=== PATIENT | male | born 1980 | race Caucasian/White ===

== ENCOUNTER 2016-08-06 16:31 | Inpatient (IN) | payer MEDICARE, OTHER ==
--- NOTE | ~2016-08-06 | PN ---
Unit #: [id number] #: [id number] Patient: FLORIAN TOLENTINO [id number] [facility] [address] [place] [address] [id number] I MR#: [id number] NAME: FLORIAN TOLENTINO ROOM: P182 Age: 35 Sex: M Admission Date: 08/06/2016 : 1980 Attending Physician: Stefanie Bray M.D. Admitting Physician: Stefanie Bray M.D. Primary Care Physician: Primary Care Physician Orin EVANS PROGRESS NOTES DATE OF SERVICE: 08/09/2016 SUBJECTIVE Mr. Tolentino is a 35-year-old white male who was seen today and chart was reviewed, and case was discussed with the staff. He has been anxious, withdrawn, disorganized subsequently exhibiting bizarre behavior and persistent paranoia and slow to respond and has been exhibiting some persistent depressive symptoms. Meanwhile, he has been taking medications and tolerating them fairly well. MENTAL STATUS EXAMINATION Young white male who was casually dressed with fair personal hygiene, appears to be in no acute distress or discomfort. He was awake and alert on interaction with intact orientation. His mood was anxious with a congruent affect. His speech was slow and goal directed. He denies suicidal or homicidal ideation. His insight and judgment remain slightly impaired. TREATMENT PLAN 1. We will continue on his current medications and treatment protocol. We will monitor his response to medications and make further adjustments as needed. 2. We will continue to follow up. Dictated by... Elton Orourke/yoni TD: 08/11/2016 06:50 JOB #: [id number] [facility] PROGRESS NOTES X Stefanie Bray MD PROGRESS NOTE
--- NOTE | ~2016-08-06 | DS ---
Unit #: [id number] #: [id number] Patient: [facility]ENTINO [id number] [facility] [address] [place] [address] [id number] I MR#: [id number] NAME: FLORIAN TOLENTINO. ROOM: P182 Age: 35 Sex: M Admission Date: 08/06/2016 : 1980 Discharge Date: 08/12/2016 Attending Physician: Stefanie Bray M.D. Primary Care Physician: Primary Care Physician No DISCHARGE SUMMARY IDENTIFYING DATA Mr. Tolention is a 35-year-old single disabled white male who is known to us from previous encounter and is a resident of [place], [place] and was self-referred to the hospital. DISCHARGE DIAGNOSES Psychiatric: Schizoaffective disorder, bipolar type, most recent episode depressed, recurrent, moderate, without psychotic features; alcohol dependence, moderate and acute withdrawals; cocaine dependence, moderate. Medical: Hypertension, pancreatitis. Stressors: Moderate psychosocial stressors. HISTORY OF PRESENT ILLNESS Please see initial psychiatric evaluation for details. PAST PSYCHIATRIC HISTORY Please see initial psychiatric evaluation for details. PAST MEDICAL HISTORY Please see initial psychiatric evaluation for details. HOSPITAL COURSE The patient was admitted to the adult chemical dependency unit at [facility] and was oriented to the hospital environment. Routine p.r.n. medications were initiated, and he was started back on his home medications and detox protocol was initiated as well. He was taking the medications regularly and he is tolerating them fairly well, and was able to show a decent therapeutic response and was willing to continue treatment on an outpatient basis and as such, it was decided that he will be discharged home and will continue treatment on an outpatient basis. DISCHARGE MEDICATIONS Celexa 40 mg a day for depression, Risperdal 2 mg b.i.d. for bipolar, and trazodone 100 mg at bedtime for sleep. DISCHARGE CONDITION Stable. PROGNOSIS Fair. Dictated by... Unit #: [id number] #: [id number] Patient: FLORIAN TOLENTINO Elton Orourke/ivanl TD: 08/12/2016 22:55 JOB #: [id number] DISCHARGE SUMMARY X Stefanie Bray MD DISCHARGE SUMMARY
--- NOTE | ~2016-08-06 | PN ---
Unit #: [id number] #: [id number] Patient: FLORIAN TOLENTINO [id number] [facility] [address] [place] [address] [id number] MR#: [id number] NAME: FLORIAN TOLENTINO. ROOM: P182 Age: 35 Sex: M Admission Date: 08/06/2016 : 1980 Attending Physician: Stefanie Bray M.D. Admitting Physician: Stefanie Bray M.D. Primary Care Physician: Primary Care Physician Orin JAMES NOTES DATE 08/07/2016 DISCUSSION Mr. Tolentino is a 35-year-old, white male who was seen today and chart was reviewed and case was discussed with the staff. He has been anxious, withdrawn, unkept, disheveled and exhibiting bizarre behavior, looseness of association and paranoid ideations. Meanwhile, he has been compliant with the treatment recommendations and has been taking medications and tolerating them fairly well with no reported side effects. MENTAL STATUS EXAM Young white male who was casually dressed with marginal personal hygiene, appears to be in no acute distress or discomfort. He was awake and alert with impaired attention and concentration. His mood was anxious with congruent affect. He denies any suicidal or homicidal ideation. His insight and judgement remains slightly impaired. TREATMENT PLAN 1. We will continue him on his current medications and treatment protocol. We will monitor his response to the medication and make further adjustments as needed. 2. We will continue to follow up. Dictated by... Elton Orourke/agusto TD: 08/10/2016 02:32 JOB #: [id number] Unit #: [id number] #: [id number] Patient: FLORIAN TOLENTINO [facility] PROGRESS NOTES X Stefanie Bray MD PROGRESS NOTE
--- NOTE | ~2016-08-06 | HP ---
Unit #: [id number] #: [id number] Patient: FLORIAN CASAS [id number] [facility] [address] [place] [address] [id number] I MR#: [id number] NAME: FLORIAN CASAS. ROOM: P182 Age: 35 Sex: M Admission Date: 08/06/2016 : 1980 Attending Physician: Stefanie Bray M.D. Admitting Physician: Stefanie Bray M.D. Primary Care Physician: Primary Care Physician No HISTORY AND PHYSICAL HISTORY OF PRESENT ILLNESS The patient is a 35-year-old male who has been admitted to [facility] for psychosis and withdrawal. PAST MEDICAL HISTORY 1. History of self-harming. 2. Hypertension. PAST SURGICAL HISTORY None. ALLERGIES Seroquel. SOCIAL HISTORY Patient does not smoke. He endorses alcohol and marijuana use along with crack cocaine and acid use. FAMILY HISTORY Medically noncontributory. REVIEW OF SYSTEMS CONSTITUTIONAL: Denies fever or chills. HEENT: Denies sore throat, ear pain or runny nose. CARDIOVASCULAR: Denies chest pain, irregular heart rhythm or palpitations. CHEST: Denies shortness of breath or cough. No hemoptysis. GASTROINTESTINAL: Denies nausea, vomiting, diarrhea or chronic constipation. ENDOCRINE: Denies increased thirst or urination. Denies recent weight loss or gain. GENITOURINARY: Denies dysuria, frequency, or hematuria. SKIN: Denies rashes. HEMATOLOGIC: Denies increased bleeding or bruising. MUSCULOSKELETAL: Denies hot, swollen joints. No generalized muscle pain. NEUROLOGIC: Denies problems with speech, vision, numbness, tingling. Denies loss of bowel or bladder control. CURRENT MEDICATIONS 1. Tegretol 200 mg p.o. b.i.d. 2. Naltrexone 50 mg p.o. daily. 3. Citalopram 40 mg p.o. daily. 4. Risperdal 2 mg p.o. b.i.d. 5. Trazodone 100 mg p.o. at night. Unit #: [id number] #: [id number] Patient: FLORIAN CASAS 6. Lisinopril 10 mg p.o. daily. 7. Vitamin B 100 mg p.o. daily. 8. Gabapentin 300 mg p.o. b.i.d. PHYSICAL EXAMINATION GENERAL: Patient awake, alert, in no acute distress. VITAL SIGNS: Temperature 98.1, heart rate 112, respirations 16, blood pressure 133/101. HEIGHT: 5 feet 10 inches. WEIGHT: 180 pounds. SKIN: Warm, dry, no unusual rashes or lesions. HEENT: Head is atraumatic, normocephalic. Pupils equal, round and reactive. Extraocular movements are intact. No drainage from ears or nares. NECK: Supple. Trachea is midline. HEART: Regular rate and rhythm. LUNGS: Clear. ABDOMEN: Soft, nontender, nondistended. : Not done. EXTREMITIES: No clubbing, edema or cyanosis. NEUROLOGICAL: Cranial II through XII intact. No focal deficits. Sensory and motor functioning are grossly normal. Moves all extremities well. Coordination, gait is normal. Deep tendon reflexes intact. IMPRESSION Psychiatric admission. RECOMMENDATIONS PSYCHIATRIC: Per psychiatrist. MEDICAL: I see no contraindication to participate in facility activities. MEDICAL PROGNOSIS Fair. MEDICAL CONDITION Stable. Dictated by... Candice Ramirez A.P.R.N. AM/mary TD: 08/06/2016 23:04 JOB #: [id number] HISTORY AND PHYSICAL X Candice Ramirez APRN X HISTORY AND PHYSICAL
--- NOTE | ~2016-08-06 | PN ---
Unit #: [id number] #: [id number] Patient: FLORIAN TOLENTINO [id number] [facility] [address] [place] [address] [id number] I MR#: [id number] NAME: FLORIAN TOLENTINO. ROOM: P182 Age: 35 Sex: M Admission Date: 08/06/2016 : 1980 Attending Physician: Stefanie Bray M.D. Admitting Physician: Stefanie Bray M.D. Primary Care Physician: Primary Care Physician Orin EVANS PROGRESS NOTES DATE OF SERVICE: 08/08/2016 SUBJECTIVE Mr. Tolentino is a 35-year-old white male who was seen today and chart was reviewed, and case was discussed with the staff. He has been anxious, withdrawn, though has not shown any agitation, irritability, or behavioral problems, and has been cooperative with treatment recommendations as he has been taking the medications and tolerating them fairly well. MENTAL STATUS EXAMINATION Young white male who was casually dressed with fair personal hygiene, appears to be in no acute distress or discomfort. He was awake and alert on interaction with intact orientation. His mood was anxious with a congruent affect. He denies any suicidal or homicidal ideations. His insight and judgment remain slightly impaired. TREATMENT PLAN 1. We will continue him on his current treatment protocol. We will monitor his response and make further adjustments as needed. 2. We will continue to follow up. Dictated by... Elton Orourke/ivanl TD: 08/10/2016 01:53 JOB #: [id number] [facility] PROGRESS NOTES X Stefanie Bray MD PROGRESS NOTE
--- NOTE | ~2016-08-06 | PN ---
Unit #: [id number] #: [id number] Patient: FLORIAN TOLENTINO [id number] [facility] [address] [place] [address] [id number] I MR#: [id number] NAME: FLORIAN TOLENTINO ROOM: P182 Age: 35 Sex: M Admission Date: 08/06/2016 : 1980 Attending Physician: Stefanie Bray M.D. Admitting Physician: Stefanie Bray M.D. Primary Care Physician: Primary Care Physician Orin EVANS PROGRESS NOTES DATE OF SERVICE: 08/10/2016 SUBJECTIVE Mr. Tolentino is a 35-year-old white male with mood disorder and psychosis, who was seen today and chart was reviewed, and case was discussed with the staff. He has been anxious, withdrawn, and all of sudden he has now decided that he wants to be discharged and wants to go home. he would like to be referred to some long-term fci as he feels that he is coming back to the hospital and needs rather longer treatment. MENTAL STATUS EXAMINATION Young white male who was casually dressed with fair personal hygiene, appears to be in no acute distress or discomfort. He was awake and alert on interaction with intact orientation. His mood was anxious with a congruent affect. He denies any suicidal or homicidal ideation. His insight and judgment remain slightly impaired. TREATMENT PLAN 1. We will continue on his current medications and treatment protocol. We will monitor his response to medications and make further adjustments as needed. 2. We will continue to follow up. Dictated by... Elton Orourke/yoni TD: 08/12/2016 07:03 JOB #: [id number] [facility] PROGRESS NOTES X Stefanie Bray MD PROGRESS NOTE
--- NOTE | ~2016-08-06 | PN ---
Unit #: [id number] #: [id number] Patient: FLORIAN TOLENTINO [id number] [facility] [address] [place] [address] [id number] I MR#: [id number] NAME: FLORIAN TOLENTINO. ROOM: P182 Age: 35 Sex: M Admission Date: 08/06/2016 : 1980 Attending Physician: Stefanie Bray M.D. Admitting Physician: Stefanie Bray M.D. Primary Care Physician: Primary Care Physician Orin JAMES NOTES DATE OF SERVICE: 08/11/2016 SUBJECTIVE Mr. Tolentino is a 35-year-old white male, who was seen today and chart was reviewed and the case was discussed with the staff. He has been anxious and withdrawn, though has not shown any agitation or irritability and has been cooperative with the treatment recommendations as he has been taking the medications and tolerating them fairly well. MENTAL STATUS EXAMINATION Young white male, who was casually dressed with fair personal hygiene, appears to be in no acute distress or discomfort. He was awake and alert on interaction with intact orientation. His mood was anxious with a congruent affect. He denies any suicidal or homicidal ideations. His insight and judgment remain slightly impaired. TREATMENT PLAN 1. We will continue him on his current medications and treatment protocol and we will monitor his response and make further adjustments as needed. 2. We will continue to follow up. Dictated by... Elton Orourke/yoni TD: 08/12/2016 10:29 JOB #: [id number] [facility] PROGRESS NOTES X Stefanie Bray MD PROGRESS NOTE
--- NOTE | ~2016-08-06 | PA ---
Unit #: [id number] #: [id number] Patient: FLORIAN CASAS [id number] [facility] [address] [place] [address] [id number] Dhaval MR#: [id number] NAME: FLORIAN CASAS. ROOM: P182 Age: 35 Sex: M Admission Date: 08/06/2016 : 1980 Date of Assessment: Attending Physician: Stefanie Bray M.D. Admitting Physician: Stefanie Bray M.D. Primary Care Physician: Primary Care Physician No PSYCHIATRIC ASSESSMENT DATE OF SERVICE 08/06/2016. IDENTIFYING DATA Mr. Casas is a 35-year-old, single, disabled white male, who is a resident of [place], [place] and is known to us from previous encounter, was self-referred to the hospital. CHIEF COMPLAINT "My mother dropped me off here today, I need help for alcohol addiction." HISTORY OF PRESENT ILLNESS Mr. Casas is a 35-year-old white male with history of mood disorder, psychosis, and substance abuse, who was recently active under my care and then decided to leave and now brought himself back stating "I need help for alcohol addiction. I just spent 200 dollars in cocaine and it scared me that I'm that capable of doing something that irresponsible. I did crack yesterday and the day before and I smoked 200 dollars worth, it got to the point where alcohol is not enough. I have been in AA for a couple of weeks and then I relapsed a week ago and I was sober for about 2 weeks and drinking about a pint of vodka and 6 pack of beer and last use was today and I drank 4 beers last time and crack was last night. No other drugs reported. I'm afraid you won't check me in. I need to stay sober. I don't need to be on my own. I don't feel safe with myself. I don't want to hurt myself. I don't want to intentionally kill myself. I don't want to hurt anyone else. Being by myself is too big of a temptation to use, I have never spent that much on crack before, I need something beside alcohol, I knew my neighbor was a user, so I knocked in his door and asked him to hook me up, alcohol was not enough." The patient was seen to be anxious, withdrawn, unkempt, disheveled, disorganized with blunted affect, minimal interaction, poor eye contact, thought blocking, and paranoia and does report some depression and suicidal ideation. SUBSTANCE ABUSE HISTORY The patient has an extensive history of substance abuse and dependence including alcohol, cannabis, cocaine, acid, and inhalants, and currently, alcohol and cocaine appears to be his drug of choice. PAST PSYCHIATRIC HISTORY The patient has had a history of multiple inpatient psychiatric hospitalizations including being at [facility], [facility], and [facility] and has been diagnosed and treated for schizoaffective disorder and substance abuse and is currently Unit #: [id number] #: [id number] Patient: FLORIAN CASAS on a combination of Celexa, Tegretol, Risperdal, and trazodone. PAST MEDICAL HISTORY The patient's medical history is significant for hypertension and history of pancreatitis. ALLERGIES Seroquel. PERSONAL AND SOCIAL HISTORY A 35-year-old white male, who reports that he is single, unemployed, and lives by himself and has fairly decent social support system. MENTAL STATUS EXAMINATION Young white male, who was casually dressed with fair personal hygiene, appears to be in no acute distress or discomfort. He was awake and alert on interaction with intact orientation to time, place, and person. His mood was anxious and depressed with a congruent affect. His speech was slow and restricted in content. His thought processes were disorganized with some looseness of associations, paranoid ideations, and suicidal ideations. His insight and judgment remain significantly impaired. DIAGNOSTIC IMPRESSION Psychiatric: Schizoaffective disorder, bipolar type, most recent episode depressed, recurrent, moderate, without psychotic features; alcohol dependence, moderate, in acute withdrawals; and cocaine dependence, moderate. Medical: Hypertension and pancreatitis. Stressors: Moderate psychosocial stressors. TREATMENT PLAN 1. The patient has presented with a history of mood disorder and substance abuse and has been decompensating and will need inpatient hospitalization for detoxification, safety, and stabilization. We will start him back on his home medications and we will adjust the medications and monitor response. 2. Supportive therapy was provided to the patient. 3. Safe, structured, and nourishing environment will be provided. ESTIMATED LENGTH OF STAY 5 to 7 days. ABILITY TO HELP SELF Limited. WILLINGNESS TO HELP SELF The patient appears to be willing to help self. STRENGTHS 1. Communicative. 2. Cooperative. PROBLEMS 1. Chronic dysphoric symptoms. 2. Chronic chemical dependency. 3. Poor social support system. DISCHARGE CRITERIA This will be contingent upon the patient's ability to go through detox Unit #: [id number] #: [id number] Patient: FLORIAN CASAS without having any significant withdrawal symptoms as well as his ability to stay safe to himself, particularly after discharge from the hospital. Dictated by... Elton Orourke/yoni TD: 08/07/2016 17:19 JOB #: [id number] PSYCHIATRIC ASSESSMENT X Stefanie Bray MD X PSYCHIATRIC ASSESSMENT
[2016-08-07 12:49] LABS: BASOPHIL# 0.1 X10e3 (0-0.3); BASOPHIL% 0.9 % (0-2.5); EOSINOPHIL# 0.2 X10e3 (0-0.7); EOSINOPHIL% 2.6 % (0.0-7.0); HEMATOCRIT 42.1 % (38.0-50.0); HEMOGLOBIN 13.9 gm/dL (13.0-16.0); LYMPHOCYTE# 3.9 X10e3 (1.0-3.5); LYMPHOCYTE% 43.9 % (17.0-45.0); MEAN CELL VOLUME 91.9 FL (83-96); MEAN CORPUSCULAR HEMOGLOBIN 30.2 PG (28-34); MEAN CORPUSCULAR HGB CONC 32.9 g/dL (30-36); MEAN PLATELET VOLUME 8.8 FL (6.5-11.5); MONOCYTE# 1.1 X10e3 (0-1.0); MONOCYTE% 12.7 % (3.0-12.0); NEUTROPHIL# 3.5 X10e3 (1.5-7.1); NEUTROPHIL% 39.9 % (40-75); PLATELET COUNT 256 X10e3 (140-420); RED BLOOD COUNT 4.59 X10e (3.90-5.60); RED CELL DISTRIBUTION WIDTH 14.1 % (11.0-15.5); WHITE BLOOD COUNT 8.8 X10e3 (4.0-10.5)
[2016-08-07 12:55] LABS: DIFF IND NO
[2016-08-07 13:07] LABS: ALBUMIN SERUM 4.3 g/dL (3.5-5.0); ALKALINE PHOSPHATASE 67 U/L (32-92); ALT (SGPT) 22 U/L (10-40); AST (SGOT) 24 U/L (10-42); BILIRUBIN,TOTAL 0.4 mg/dL (0.2-2.0); BLOOD UREA NITROGEN 18 mg/dL (9-23); CALCIUM SERUM 10.1 mg/dL (8.4-10.2); CARBON DIOXIDE 26 mmol/L (22-31); CHLORIDE 106 mmol/L (100-111); CREATININE SERUM 1.2 mg/dL (0.6-1.4); GLOM FILT RATE Estimated ABOVE60 mL/min (>60); GLUCOSE FASTING 93 mg/dL (70-110); POTASSIUM 4.9 mmol/L (3.5-5.1); PROTEIN TOTAL SERUM 7.4 g/dL (6.0-8.3); SODIUM 141 mmol/L (135-145)
[2016-08-07 13:37] LABS: THYROID STIMULATING HORMONE 2.47 uIU/ml (0.34-5.60)
[2016-08-07 13:44] LABS: FREE THYROXIN (T4) 0.78 ng/dL (0.58-1.64)
[2016-08-09 09:36] LABS: URINE APPEARANCE CLEAR; URINE BILIRUBIN NEG (NEG); URINE BLOOD NEG (NEG); URINE COLOR YELLOW; URINE GLUCOSE NEG (NEG); URINE KETONE NEG (NEG); URINE LEUKOCYTE ESTERASE NEG (NEG); URINE NITRATE NEG (NEG); URINE PROTEIN NEG (NEG); URINE SPECIFIC GRAVITY 1.013 (1.003-1.035); URINE UROBILINOGEN 0.2 MG/DL (NEG)
[2016-08-09 09:59] LABS: AMPHETAMINE NEG (NEG); BARBITURATES NEG (NEG); BENZODIAZEPINES POS (NEG); COCAINE POS (NEG); MARIJUANA POS (NEG); OPIATES NEG (NEG); TRICYCLIC ANTIDEPRESSANTS NEG (NEG); U METHADONE NEG (NEG)
== END 2016-08-12 09:20 | disposition home or self-care (01) | DRG 885 ==
LOC: P1E 16:31
PROVIDERS: Psychiatry & Neurology Psychiatry
PROC: HZ2ZZZZ Detoxification Services for Substance Abuse Treatment (ICD-10-PCS; principal; 2016-08-06)
DX: F25.0 Schizoaffective disorder, bipolar type (principal); F14.20 Cocaine dependence, uncomplicated; I10 Essential (primary) hypertension; F10.239 Alcohol dependence with withdrawal, unspecified; F31.32 Bipolar disorder, current episode depressed, moderate
CPT/HCPCS: 80053; 80156; 80307; 81003; 84439; 84443; 85025; 86592

== ENCOUNTER 2016-10-06 12:49 | Inpatient (IN) | payer MEDICARE, OTHER ==
--- NOTE | ~2016-10-06 | DS ---
Unit #: [id number] #: [id number] [facility]: [facility] [id number] [facility] [address] [place] [address] [id number] MR#: [id number] NAME: FLORIAN CAASS. ROOM: P175 Age: 35 Sex: M Admission Date: 10/06/2016 : 1980 Discharge Date: 10/11/2016 Attending Physician: Stefanie Bray M.D. Primary Care Physician: Primary Care Physician No DISCHARGE SUMMARY IDENTIFYING DATA Mr. Casas is a 35-year-old single disabled white male, who is a resident of [place], [place], and is known to us from previous encounter, was self-referred to the hospital on a voluntary basis. DISCHARGE DIAGNOSES Psychiatric: Schizoaffective disorder, bipolar type, most recent episode depressed, recurrent, moderate, without psychotic features; alcohol dependence, moderate and acute withdrawals; cocaine dependence, moderate. Medical: Pancreatitis and hypertension. Stressors: Moderate psychosocial stressors. HISTORY OF PRESENT ILLNESS Please see initial psychiatric evaluation for details. PAST PSYCHIATRIC HISTORY Please see initial psychiatric evaluation for details. PAST MEDICAL HISTORY Please see initial psychiatric evaluation for details. HOSPITAL COURSE The patient was admitted to the adult psychiatric and chemical dependency unit at [facility] and was oriented to the hospital environment. Routine p.r.n. medications were initiated, and he was started back on his home medications and medications were adjusted and he was closely monitored. He was initially seen to be anxious, withdrawn, though cooperative with treatment recommendation and was taking the medications regularly and was tolerating them fairly well and no further adjustments will be made in his medications, it was decided that he will be discharged home and will continue treatment on an outpatient basis. DISCHARGE MEDICATIONS Risperdal 2 mg b.i.d. for bipolar, ReVia 50 mg at bedtime for alcohol dependence, Tegretol 200 mg b.i.d. for mood disorder, trazodone 100 mg at bedtime for sleep, Celexa 40 mg a day for depression. DISCHARGE CONDITION Stable. PROGNOSIS Fair. Unit #: [id number] #: [id number] Patient: FLORIAN CASAS Dictated by... Stefanie Bray M.D. IAA/modl TD: 10/12/2016 08:12 JOB #: [id number] DISCHARGE SUMMARY Page 1 of 1 X Stefanie Bray MD DISCHARGE SUMMARY
--- NOTE | ~2016-10-06 | PN ---
Unit #: [id number] #: [id number] Patient: FLORIAN TOLENTINO [id number] [facility] [address] [place] [address] [id number] MR#: [id number] NAME: FLORIAN TOLENTINO. ROOM: P175 Age: 35 Sex: M Admission Date: 10/06/2016 : 1980 Attending Physician: Stefaine Bray M.D. Admitting Physician: Stefanie Bray M.D. Primary Care Physician: Primary Care Physician Orin EVANS PROGRESS NOTES DATE October 10, 2016 DISCUSSION Mr. Tolentino is a 35-year-old white male, who was seen today and chart was reviewed and the case was discussed with the staff. He has been anxious, withdrawn, and rather seclusive to himself but he reports having much better mood, depression, and anxiety, and he reports that he would like to be discharged tomorrow. MENTAL STATUS EXAMINATION Young white male, who was casually dressed with fair personal hygiene and appears to be in no acute distress or discomfort. He was awake and alert on interaction with intact orientation. His mood is anxious with a congruent affect. He denies any suicidal or homicidal ideations. His insight and judgment remain slightly impaired. TREATMENT PLAN We will continue him on his current medications and treatment protocol, and will consider discharge planning tomorrow. Dictated by... Elton Orourke/espinoza TD: 10/11/2016 10:15 JOB #: [id number] [facility] PROGRESS NOTES Page 1 of 1 X Stefanie Bray MD PROGRESS NOTE
--- NOTE | ~2016-10-06 | PN ---
Unit #: [id number] #: [id number] Patient: FLORIAN TOLENTINO [id number] [facility] [address] [place] [address] [id number] MR#: [id number] NAME: FLORIAN TOLENTINO. ROOM: [facility] Age: 35 Sex: M Admission Date: 10/06/2016 : 1980 Attending Physician: Stefanie Bray M.D. Admitting Physician: Stefanie Bray M.D. Primary Care Physician: Primary Care Physician Orin EVANS PROGRESS NOTES DATE OF SERVICE 10/08/2016 DISCUSSION Mr. Tolentino is a 35-year-old white male who was seen today. Chart was reviewed and case was discussed with staff who reported the patient has not been doing good and has been exhibiting a lot of anxiety and paranoia. He was pacing he hallways and had an anger on his face and was staring at people and staff and me, and stated that he wants to leave now. Meanwhile, he has been taking the medications and has been able to show a therapeutic response yet. MENTAL STATUS EXAMINATION Young white male who is casually dressed with fair personal hygiene, appears to be in no acute distress or discomfort. He was awake and alert on interaction with intact orientation. His mood is anxious with a congruent affect. He denies any suicidal or homicidal ideations. His thought processes were disorganized with some looseness of associations, flight of ideas, and paranoid ideations. His insight and judgment remain significantly impaired. TREATMENT PLAN 1. We will continue him on his current medications and treatment protocol. We will monitor his response to the medications and make further adjustments as needed. 2. We will continue to follow up. Dictated by... Elton Orourke/rayshawn TD: 10/08/2016 14:38 JOB #: [id number] Unit #: [id number] #: [id number] Patient: FLORIAN TOLENTINO [facility] PROGRESS NOTES Page 1 of 1 X Stefanie Bray MD PROGRESS NOTE
--- NOTE | ~2016-10-06 | A ---
[facility] Nutrition Therapy DATE: 10/08/16 Patient: FLORIAN CASAS Physician: AFAIRF Address: [address] [facility] Room/Bed: [address], Zip: [place] [address] Admit Date: 10/06/16 Date of : [birth year] Height: 5 10 Weight: [phone] NUTRITIONAL ASSESSMENT: REASON: 2 NUTRITIONAL RISK POINTS- UNINTENTIONAL WEIGHT LOSS, CHEWING/SWALLOWING DIFFICULTIES PATIENT ADMITTED FOR SUBSTANCE ABUSE, DERESSION, SI PMH: HTN, HX SELF-HARM Anthropometrics: HT: 5'10", WT: 172#, BMI: 24.7, %IBW: 104 Labs: 10/07/16- GLU: 116 Meds: DESYREL, RISPERDAL, CELEXA, DETOX PROTOCOL Assessment: PATIENT IS A 35 Y/O MALE ADMITTED FOR SUBSTANCE ABUSE, DEPRESSION, AND SI. PATIENT IS CURRENTLY ON DISABILITY, LIVES ALONE, SMOKES 1/2 PPD, HAS DAILY ETOH AND COCAINE USE, OCCASIONAL METH AND MARIJANA USE, AND A HX OF ACID ABUSE. PATIENT HAS BEEN NON-COMPLIANT WITH MEDICATIONS PRIOR TO ADMIT, AND HAS A HX OF INPATIENT PSYCH HOSPITALIZATIONS. PATIENT STATED A FPOOR APPETITE WIHT AN UNKNOWN AMOUNT OF WEIGHT LOSS, AND HE HAD NOT BEEN SLEEPING. NURSING REPORTS FA[employer] PO INTAKES. CURRENT PSYCH MEDS MAY CAUSE WEIGHT AND APPETITE FLUCTUATIONS. PATIENT SCORED A NUTRITIONAL RISK POINT FOR CHEWING/SWALLOWING DIFFICULTIES; HOWEVER PATIENT HAS BEEN TOLERATING A REGULAR DIET, HAS NO C/O CHEWING/SWALLING DIFFICULTIES, AND HAS NO HX OF CHEW/SWALL DIFFICULTIES. THERE ARE NO SKIN OR GI ISSUES NOTED ATT. PATIENT IS ON A REGULAR DIET WITH NO CAFFEINE, AND RECEIVES LARGE PORTION ENTREES. Dx: NO NUTRITION DX Intervention: REGULAR DIET WITH NO CAFFEINE, MEDS PER MD, DETOX, PSYCH Monitoring, Evaluation and Goals: 1. ADEQUATE PO INTAKES >50% OF MEALS 2. PREVENT, CORRECT MICRO/MACRO NUTRIENT DEFICIENCIES MONITOR: WEIGHTS, LABS, PO/FLUID INTAKES Recommendations: 1. CONTINUE REGULAR DIET WITH NO CAFFEINE AND LARGE PORTION ENTREES TOLERATED 2. ENCOURAGE ADEQUATE PO AND FLUID INTAKES [facility] Nutrition Therapy DATE: 10/08/16 Patient: FLORIAN CASAS Physician: AFAIRF Address: [address] [place] [address] Room/Bed: [facility] [facility], Zip: [place] [address] Admit Date: 10/06/16 Date of : [birth year] Height: 5 10 Weight: [phone] TO F/U PER PROTOCOL AND PRN R/T PATIENT NOT AT NUTRITIONAL RISK ATT Respectfully, JESSICA MORALES, REGAN, LD [employer] [facility] cc: client file
--- NOTE | ~2016-10-06 | HP ---
Unit #: [id number] #: [id number] Patient: LINO CASAS [id number] [place] [address] [id number] MR#: [id number] NAME: LINO CASAS. ROOM: 77 Age: 35 Sex: M Admission Date: 10/06/2016 : 1980 Attending Physician: Stefanie Bray M.D. Admitting Physician: Stefanie Bray M.D. Primary Care Physician: Primary Care Physician No HISTORY AND PHYSICAL HISTORY OF PRESENT ILLNESS Lino is a 35 year old admitted to [facility] because of his drug use. He uses crack cocaine. He is experiencing some increased psychosis. He has had other admissions to this facility for the same. PAST MEDICAL HISTORY 1. History of self-harming. Nothing new prior to this admission. 2. High blood pressure. 3. History of illicit drug use to include crack cocaine. PAST SURGICAL HISTORY Nothing reported. ALLERGIES No known drug allergies. SOCIAL HISTORY Smokes 1 pack per day. Drinks alcohol on occasion. Has a history of crack cocaine use. FAMILY HISTORY Medically noncontributory. REVIEW OF SYSTEMS CONSTITUTIONAL: No fever or chills. HEENT: Denies any sore throat, ear pain or runny nose. CARDIOVASCULAR: Denies chest pain, irregular heart rhythm or palpitations. CHEST: Denies shortness of breath or cough. No hemoptysis. GASTROINTESTINAL: Denies nausea, vomiting, diarrhea or chronic constipation. ENDOCRINE: Denies history of increased thirst or urination. No recent significant weight loss or gain. GENITOURINARY: Denies dysuria, frequency, or hematuria. SKIN: Denies any rashes. HEMATOLOGIC: Denies history of increased bleeding or bruising. MUSCULOSKELETAL: Denies any hot, swollen joints. No generalized muscle pain. NEUROLOGIC: Denies problems with vision or speech. No frequent, severe headaches. No numbness, tingling or weakness in any extremities. Denies loss of bladder or bowel control. CURRENT MEDICATIONS 1. Detox protocol. Unit #: [id number] #: [id number] Patient: LINO CASAS 2. Desyrel 100 mg q.h.s. 3. Tegretol 200 mg b.i.d. 4. Risperdal 2 mg b.i.d. 5. Celexa 40 mg daily. 6. ReVia 50 mg daily. PHYSICAL EXAMINATION GENERAL: Alert, well-nourished, in no apparent distress. VITAL SIGNS: Blood pressure 136/100, heart rate 100, respirations 16, temperature 98.6. WEIGHT: 172. HEIGHT: 5 feet 10 inches. SKIN: Warm and dry without rash or lesion. HEENT: Normocephalic. TMs not viewed. Nasal passages are clear. Oral mucosa is especially red and dry. NECK: Supple without lymphadenopathy or thyromegaly. HEART: Regular rate and rhythm without murmur. LUNGS: Clear. ABDOMEN: Soft, nontender. : Not done. EXTREMITIES: No evidence of cyanosis, clubbing or edema. Moves all without focal deficit. NEUROLOGICAL: Grossly within normal limits. Cranial Nerves: II: Visual hart are intact. III, IV AND : Extraocular movements are intact. Pupils are equal, round and reactive to light. V: Facial sensation is grossly normal. VII: Facial movements and expression are normal. VIII: Auditory acuity grossly intact. IX, X: Uvula is midline. Phonation is normal. XI: Patient shrugs shoulders and turns head normally. XII: Tongue protrudes in the midline. Sensory and Motor Function: Sensory and motor sensation is grossly normal. Motor: moves all extremities well. Coordination: Gait is normal. Deep Tendon Reflexes: Intact. IMPRESSION 1. Psychiatric admission. 2. Stomatitis. RECOMMENDATIONS PSYCHIATRIC: Per psychiatrist. MEDICAL: 1. See no contraindications to participate in facility's activities. 2. Nystatin swish and swallow 15 ml p.o. t.i.d. x7 days. MEDICAL PROGNOSIS Good. MEDICAL CONDITION Stable. Dictated by... Irlanda Calderon P.A.-C. for Karl Turpin M.D. Unit #: [id number] #: [id number] Patient: BRO CASASJOE HUFFMAN/mary TD: 10/06/2016 21:21 JOB #: [id number] HISTORY AND PHYSICAL Page 1 of 1 X Irlanda Calderon X HISTORY AND PHYSICAL
--- NOTE | ~2016-10-06 | PA ---
Unit #: [id number] #: [id number] Patient: FLORIAN CASAS [id number] [facility] [address] [place] [address] [id number] Dhaval MR#: [id number] NAME: FLORIAN CASAS ROOM: P177 Age: 35 Sex: M Admission Date: 10/06/2016 : 1980 Date of Assessment: 10/06/2016 Attending Physician: Stefanie Bray M.D. Admitting Physician: Stefanie Bray M.D. Primary Care Physician: Primary Care Physician No PSYCHIATRIC ASSESSMENT DATE OF SERVICE 10/06/2016. IDENTIFYING DATA Mr. Casas is a 35-year-old single disabled white male, who is a resident of [place], [place], and is known to us from previous encounter, was self-referred to the hospital on a voluntary basis. CHIEF COMPLAINT "I'm feeling overwhelmed and I'm suicidal." HISTORY OF PRESENT ILLNESS Mr. Casas is a 35-year-old white male with history of mood disorder and substance abuse, who reports that he was at this place called [facility] talking to his counselor and she called the police to transport him to the facility as he stated "I told my counselor that I was on a 5-day crack cocaine binge and not able to sleep for the past 4 days and I was using 200 dollars worth a day and last use was today 3 in the morning and also I had a little of methamphetamine for 2 days and had a couple of people in my house passing my stuff and was beginning to happen more frequently. Every time I have money, I end up spending it on drugs. I live in apartment where everybody does drugs and spending it on drugs and I have been drinking alcohol to try to get to sleep, 6 beers over the past week and this has been going on and I don't know how to get out of it. I'm feeling overwhelmed with feelings of hopelessness because I don't want to do this anymore. About two weeks ago, I took a bottle of my trazodone to try to kill myself and just sleep and often I want to overdose and thoughts are becoming more frequent. I'm not sure what I might do if I go home. I don't want to go back there where I live." The patient does report increasing depression, anxiety, irritability, restlessness, feelings of hopelessness and helplessness, and suicidal ideations and as such, recommendation for inpatient level of care for safety and stabilization was made and the patient was stepped up to the inpatient unit. SUBSTANCE ABUSE HISTORY The patient reports history of alcohol, cannabis, cocaine, acid, inhalants, and amphetamine abuse in the past, though currently he reports that alcohol and cocaine has been his drug of choice. PAST PSYCHIATRIC HISTORY The patient has had history of multiple inpatient psychiatric hospitalizations at [facility], and Unit #: [id number] #: [id number] Patient: FLORIAN CASAS J other facilities and has been diagnosed and treated for schizoaffective disorder, bipolar type along with his substance abuse issues and review of the medical records indicate that he is supposed to be on Risperdal, Tegretol, and Celexa, but it is not clear if he has been compliant with the medication as he has been on a drug binge. PAST MEDICAL HISTORY Significant for hypertension and history of pancreatitis. ALLERGIES Seroquel. PERSONAL AND SOCIAL HISTORY A 35-year-old white male, who reports that he is single, unemployed, disabled, and lives alone and has poor social support system. MENTAL STATUS EXAMINATION Young white male who was casually dressed with fair personal hygiene, appears to be in no acute distress or discomfort. He was awake and alert on interaction with intact orientation to time, place, and person. His mood was anxious and depressed with a congruent affect. His speech was slow and restricted in content. His thought processes were disorganized with some looseness of associations and flight of ideas and suicidal ideations. His insight and judgment remain significantly impaired. DIAGNOSTIC IMPRESSION Psychiatric: Schizoaffective disorder, bipolar type, most recent episode depressed, recurrent, moderate, without psychotic features; alcohol dependence, moderate and acute withdrawals; cocaine dependence, moderate. Medical: Pancreatitis and hypertension. Stressors: Moderate psychosocial stressors. TREATMENT PLAN 1. The patient has presented with a history of mood disorder and substance and has been decompensating and will need inpatient hospitalization for safety and stabilization and detoxification. We will start him on detox protocol. We will also start him back on his home medications. We will adjust the medications and monitor response. 2. Supportive therapy was provided to the patient. 3. Safe, structured, and nourishing environment will be provided. ESTIMATED LENGTH OF STAY 5 to 7 days. ABILITY TO HELP SELF Limited. WILLINGNESS TO HELP SELF The patient appears to be willing to help self. STRENGTHS 1. Communicative. 2. Cooperative. PROBLEMS 1. Chronic dysphoric symptoms. 2. Poor social support system. Unit #: [id number] #: [id number] Patient: FLORIAN CASAS DISCHARGE CRITERIA This will be contingent upon the patient's ability to show resolution of his depression and anxiety and his ability to stay safe and sober, particularly after discharge from the hospital. Dictated by... Stefanie Bray M.D. NOE/yoni TD: 10/07/2016 07:05 JOB #: [id number] PSYCHIATRIC ASSESSMENT Page 1 of 1 X Stefanie Bray MD X PSYCHIATRIC ASSESSMENT
--- NOTE | ~2016-10-06 | PN ---
Unit #: [id number] #: [id number] Patient: FLORIAN TOLENTINO [id number] [facility] [address] [place] [address] [id number] MR#: [id number] NAME: FLORIAN TOLENTINO. ROOM: P175 Age: 35 Sex: M Admission Date: 10/06/2016 : 1980 Attending Physician: Stefanie Bray M.D. Admitting Physician: Stefanie Bray M.D. Primary Care Physician: Primary Care Physician Orin EVANS PROGRESS NOTES DATE October 07, 2016 DISCUSSION Mr. Tolentino is a 35-year-old white male, who was seen today and chart was reviewed and the case was discussed with the staff. He remains extremely agitated, irritable and has an odd behavior and persistent paranoia, and refusing to be cooperative with treatment recommendation. As such, for safety and stabilization has been initiated. MENTAL STATUS EXAMINATION Young white male, who was casually dressed with fair personal hygiene, appears to be in no acute distress or discomfort. He was awake and alert on interaction with intact orientation. Mood is anxious and depressed with a congruent affect. His thought processes has some thought blocking and paranoid ideation. His insight and judgment remain significantly impaired. TREATMENT PLAN 1. We will continue him on his current medications and treatment protocol, and will monitor his response to the medications, and make further adjustments as needed. 2. We will continue to followup. Dictated by... Elton Orourke/eldon TD: 10/10/2016 11:33 JOB #: [id number] Unit #: [id number] #: [id number] Patient: FLORIAN TOLENTINO PROGRESS NOTES Page 1 of 1 X Stefanie Bray MD PROGRESS NOTE
--- NOTE | ~2016-10-06 | PN ---
Unit #: [id number] #: [id number] Patient: FLORIAN TOLENTINO [id number] [facility] [address] [place] [address] [id number] MR#: [id number] NAME: FLORIAN TOLENTINO. ROOM: [facility] Age: 35 Sex: M Admission Date: 10/06/2016 : 1980 Attending Physician: Stefanie Bray M.D. Admitting Physician: Stefanie Bray M.D. Primary Care Physician: Primary Care Physician Orin EVANS PROGRESS NOTES DATE October 07, 2016 DISCUSSION Mr. Tolentino is a 35-year-old white male, who was seen today and chart was reviewed and the case was discussed with the staff. He remains anxious, withdrawn, but has not shown any agitation or irritability or behavioral problems, and has been cooperative with the treatment recommendations, and has been exhibiting persistent depressive symptoms and feelings of hopelessness. MENTAL STATUS EXAMINATION Young white male, who was casually dressed with fair personal hygiene and appears to be in no acute distress or discomfort. He was awake and alert with impaired attention and concentration. His mood is anxious and depressed with a congruent affect. He reports having suicidal ideations but denies any homicidal ideations, and also denies any auditory or visual hallucinations. His insight and judgment remain slightly impaired. TREATMENT PLAN 1. We will continue him on his current medications and treatment protocol, and will monitor his response to the medications, and make further adjustments as needed. 2. We will continue to followup. Dictated by... Elton Orourke/espinoza TD: 10/07/2016 09:08 JOB #: [id number] Unit #: [id number] #: [id number] Patient: FLORIAN TOLENTINO PEASHELIA PROGRESS NOTES Page 1 of 1 X Stefanie Bray MD PROGRESS NOTE
[2016-10-07 09:32] LABS: BASOPHIL# 0.1 X10e3 (0-0.3); BASOPHIL% 0.5 % (0-2.5); EOSINOPHIL# 0.2 X10e3 (0-0.7); EOSINOPHIL% 1.8 % (0.0-7.0); HEMATOCRIT 42.7 % (38.0-50.0); LYMPHOCYTE# 3.9 X10e3 (1.0-3.5); LYMPHOCYTE% 33.7 % (17.0-45.0); MEAN CELL VOLUME 90.4 FL (83-96); MEAN CORPUSCULAR HEMOGLOBIN 29.7 PG (28-34); MEAN CORPUSCULAR HGB CONC 32.9 g/dL (30-36); MONOCYTE# 1.2 X10e3 (0-1.0); MONOCYTE% 10.8 % (3.0-12.0); NEUTROPHIL# 6.1 X10e3 (1.5-7.1); NEUTROPHIL% 53.2 % (40-75); PLATELET COUNT 207 X10e3 (140-420); RED BLOOD COUNT 4.72 X10e (3.90-5.60); RED CELL DISTRIBUTION WIDTH 14.7 % (11.0-15.5); WHITE BLOOD COUNT 11.4 X10e3 (4.0-10.5)
[2016-10-07 09:43] LABS: DIFF IND NO
[2016-10-07 09:55] LABS: BILIRUBIN,TOTAL 0.4 mg/dL (0.2-2.0); CALCIUM SERUM 9.3 mg/dL (8.4-10.2); GLOM FILT RATE Estimated 98.5 mL/min (>60); PROTEIN TOTAL SERUM 6.6 g/dL (6.0-8.3)
== END 2016-10-11 11:20 | disposition home or self-care (01) | DRG 885 ==
LOC: P1E 12:49
PROVIDERS: Psychiatry & Neurology Psychiatry
PROC: HZ2ZZZZ Detoxification Services for Substance Abuse Treatment (ICD-10-PCS; principal; 2016-10-06)
PROC: HZ2ZZZZ Detoxification Services for Substance Abuse Treatment (ICD-10-PCS; 2016-10-06)
DX: F25.0 Schizoaffective disorder, bipolar type (principal); K85.90 Acute pancreatitis without necrosis or infection, unspecified; F10.239 Alcohol dependence with withdrawal, unspecified; F14.20 Cocaine dependence, uncomplicated; I10 Essential (primary) hypertension
CPT/HCPCS: 80053; 85025; 86592